=== PATIENT | female | born 1955 | race Caucasian/White ===

== ENCOUNTER → 2023-03-25 | Outpatient (CLI) | payer MEDICARE | END | disposition home or self-care (01) | LOC: RAH 16:26 | PROVIDERS: ATTEND Internal Medicine Gastroenterology | DX: K44.9 Diaphragmatic hernia without obstruction or gangrene (principal); K21.00 Gastro-esophageal reflux disease with esophagitis, without bleeding | CPT/HCPCS: 74240 ==

== ENCOUNTER → 2025-05-14 | Outpatient (CLI) | payer MEDICARE ==
[2025-05-14 15:03] LABS: ASPARTATE AMINOTRANSFERASE 29.0 U/L (10-37); CREATININE 0.9 mg/dL (0.5-1.0); GLOMERULAR FILTR. RATE CALC 68.0 mL/min (>90); GLUCOSE,RANDOM 388.0 mg/dL (70-105); LDL DIRECT 121.0 mg/dL (0-99); SODIUM SERUM 138.0 mmol/L (136-145); TOTAL PROTEIN, SERUM 7.3 g/dL (6.0-8.3); UREA NITROGEN, BLOOD 14.0 mg/dL (7-18)
== END | disposition home or self-care (01) ==
LOC: LAB 13:59
PROVIDERS: ATTEND Student in an Organized Health Care Education/Training Program
DX: R07.9 Chest pain, unspecified (principal)
CPT/HCPCS: 36415; 80053; 80061

== ENCOUNTER → 2025-05-21 | Outpatient (CLI) | payer MEDICARE ==
[~2025-05-21] MED LIST: IOHEXOL 350 MG/ML 100ML INFUS..BTL IV ONE
--- NOTE | 2025-05-23 10:08 | CARDIOLOGY ---
RAD REPORT: CORNARY CT ANGIO RADIOLOGY REPORT: CORONARY CT ANGIOGRAPHY DATE: May 23, 2025 QUALITY: Excellent CLINICAL HISTORY AND INDICATION: [ chest pain ] TECHNIQUE: After obtaining a preliminary clinical data programmer image, contrast imaging performed on an [employer] [id number] scanner. A dedicated, limited window, coronary imaging protocol was used, with single breath-hold, retrospective ECG gating, and automated arrhythmia rejection. 100 cc of low osmolar contrast agent: Omnipaque 350 was delivered via a 18-gauge IV catheter in the right antecubital fossa, using a power injector and followed by 60 cc of normal saline bolus as a chaser. Collimated images were reformatted at 0.5 mm intervals, and sent to an offline independent workstation for interpretation, using 3D anatomic reconstructions: Curved multiplanar reconstructions, maximum intensity projections, and multiplanar imaging. 10 mg IV metoprolol was administered prior to scanning. 0.8 mg SL nitroglycerin was given. CORONARY ARTERY DESCRIPTIONS: The coronary arteries arise in normal position. Left main coronary artery: Normal caliber vessel that bifurcates into the LAD and LCx. No stenosis. Left anterior descending coronary artery: Normal caliber vessel and gives rise to diagonal and septal branches. There is calcified plaque in the proximal LAD with 20-30% stenosis. Left circumflex coronary artery: Normal caliber, nondominant and gives rise to two OM branches. No stenosis. Right coronary artery: Large, dominant vessel giving rise to the PL and PDA branches. No stenosis. CAD-RADs: 2, mild non-obstructive CAD. Thoracic Aorta: Normal diameter. Viki Stevenson MD Cardiovascular Disease [facility] [address] VIKI STEVENSON MD May 23, 2025 10:08
== END | disposition home or self-care (01) ==
LOC: RAH 08:20
PROVIDERS: ATTEND Student in an Organized Health Care Education/Training Program
DX: I25.10 Atherosclerotic heart disease of native coronary artery without angina pectoris (principal); R07.9 Chest pain, unspecified
CPT/HCPCS: 75574; J3490; Q9967; 36415; 80053; 80061